=== PATIENT | male | born 1970 | race African-American/Black ===

== ENCOUNTER → 2017-07-05 | Outpatient (CLI) | payer OTHER ==
--- NOTE | 2017-07-05 17:11 | DIAGNOSTIC IMAGING REPORT ---
L ANKLE MIN 3 VIEWS ROUTINE, R ANKLE MIN 3 VIEWS ROUTINE HISTORY: 47 years-old Male LT ANKLE INJURY acute bilateral ankle pain without reported trauma COMPARISON: None available TECHNIQUE: 3 views of the bilateral ankles FINDINGS: LEFT: No acute fracture, dislocation, osteochondral defect or significant degenerative changes. Tiny enthesophyte about the Achilles calcaneus. Soft tissues are unremarkable without opaque foreign body. RIGHT: No acute fracture, dislocation, osteochondral defect or significant degenerative changes. Minimal marginal spurring about the dorsal midfoot. Mild soft tissue prominence about the anterior ankle without opaque foreign body. IMPRESSION: No acute fracture or dislocation. The above report was generated using voice recognition software. It may contain grammatical, syntax or spelling errors. Electronically signed by: Antonio Marin M.D. 07/05/2017 5:10 PM Dictated Date/Time: 07/05/2017 5:08 PM
== END | disposition home or self-care (01) ==
LOC: C.RAD1850 16:56
PROVIDERS: ATTEND Family Medicine
DX: S99.912A Unspecified injury of left ankle, initial encounter (principal); X58.XXXA Exposure to other specified factors, initial encounter; M25.571 Pain in right ankle and joints of right foot; M25.572 Pain in left ankle and joints of left foot